=== PATIENT | female | born 1985 | race Caucasian/White ===

== ENCOUNTER → 2018-09-26 16:55 | Outpatient (CLI) | payer OTHER, SELFPAY ==
[2018-09-26 17:40] LABS: Add Manual Diff / Slide Review NO; Basophils Absolute Auto 100 /uL (0-100); Basophils Percent Auto 0.8 % (0-2); Eosinophils Absolute Auto 100 /uL (0-450); Eosinophils Percent Auto 0.7 % (2-4); Hematocrit 37.5 % (36-46); Lymphocytes Absolute Auto 2700 /uL (1100-4500); Lymphocytes Percent Auto 26.8 % (25-40); Mean Corpuscular HGB Conc 34.5 % (30-36); Mean Corpuscular Volume 89.8 fL (80-100); Monocytes Absolute Auto 600 /uL (0-900); Monocytes Percent Auto 6.4 % (3-14); Neutrophils Absolute Auto 6500 /uL (1500-7000); Neutrophils Percent Auto 65.3 % (50-75); Platelet Count 325 X10^3/uL (150-400); Red Blood Cell Count 4.18 X10^6/uL (4.0-5.2); Red Cell Distribution Width 12.1 % (11.6-14.8); White Blood Cell Count 9.9 X10^3/uL (4.5-11.0)
[2018-09-26 18:02] LABS: Appearance Urine UA CLEAR; Bilirubin Urine UA NEGATIVE (NEGATIVE); Color Urine UA YELLOW; Glucose Urine UA NEGATIVE (Negative); Ketones Urine UA NEGATIVE (NEGATIVE); Leukocyte Esterase Urine UA NEGATIVE (NEGATIVE); Nitrite Urine UA NEGATIVE (Negative); Occult Blood Urine UA NEGATIVE (Negative); Protein Urine UA NEGATIVE (Negative); Specific Gravity Urine UA 1.025 (1.000-1.035); Urobilinogen Urine UA 0.2 E.U./dL (0.2)
[2018-09-26 18:39] LABS: Hepatitis B Surface Antigen NEGATIVE s/c (NEGATIVE); Rubella Antibody IgG 58.4 IU/mL (>15)
[2018-09-26 19:15] LABS: HIV 1 & 2 Ab/Ag 4th Gen Combo NEGATIVE (NEGATIVE); Hep C Virus Ab w/Reflex Quant NEGATIVE s/c (NEGATIVE)
[2018-09-28 16:06] LABS: RPR Screen Nonreactive (Nonreactive)
== END ==
PROVIDERS: PCP Obstetrics & Gynecology; Visit Provider Obstetrics & Gynecology
DX: Z34.81 Encounter for supervision of other normal pregnancy, first trimester (principal)
CPT/HCPCS: 36415; 80055; 81003; 86787; 86803; 86850; 86870; 86886; 86900; 86901; 87086; 87389

== ENCOUNTER → 2018-10-23 08:44 | Outpatient (CLI) | payer OTHER, SELFPAY ==
[2018-10-23 20:30] LABS: Urine N gonorrhoeae NOT DETECTED
[2018-10-23 20:32] LABS: Urine Chlamydia NOT DETECTED
== END ==
PROVIDERS: PCP Obstetrics & Gynecology; Visit Provider Obstetrics & Gynecology
DX: Z11.3 Encounter for screening for infections with a predominantly sexual mode of transmission (principal)
CPT/HCPCS: 87491; 87591

== ENCOUNTER → 2018-11-20 16:48 | Outpatient (CLI) | payer OTHER, SELFPAY ==
[2018-11-26 15:57] LABS: AFP, Serum 44.1 ng/mL; Cigarette Smoker NO; Donated Egg NOT GIVEN; Donor Egg Age NOT GIVEN; Estriol, Free 1.42 ng/mL; Inhibin A, Dimeric 156 pg/mL; Maternal Weight 164 lbs; Number of Fetuses 1; Previous Pregnancy Down Syndro NOT GIVEN; hCG, MoM 2.45; hCG, Serum 65.9 IU/mL
== END ==
PROVIDERS: PCP Obstetrics & Gynecology; Visit Provider Obstetrics & Gynecology
DX: Z34.82 Encounter for supervision of other normal pregnancy, second trimester (principal); Z3A.17 17 weeks gestation of pregnancy
CPT/HCPCS: 36415; 82105; 82677; 84702; 86336

== ENCOUNTER 2018-11-26 15:05 | Outpatient (CLI) | payer OTHER, SELFPAY | END 2018-11-26 16:13 | disposition home or self-care (01) | LOC: LABOR 15:08 → OB 11-27 09:09 | PROVIDERS: PCP Obstetrics & Gynecology; Visit Provider Obstetrics & Gynecology | DX: O26.892 Other specified pregnancy related conditions, second trimester (principal); Z3A.17 17 weeks gestation of pregnancy; N89.8 Other specified noninflammatory disorders of vagina | CPT/HCPCS: 84112; G0378; G0379 ==

== ENCOUNTER → 2018-12-11 08:32 | Outpatient (CLI) | payer OTHER, SELFPAY ==
--- NOTE | 2018-12-11 08:33 | DI.US.S_ITS ---
PROCEDURE: US OB >= 14 WEEKS FETUS INDICATIONS: ANATOMY SCAN OUTSIDE/PRIOR DATING DATA: Last menstrual period (LMP): 07/23/18. LMP-based estimated date of delivery (ASHUTOSH): 04/29/19. First dating scan (date and location): 09/26/18. Estimated date of delivery (ASHUTOSH) from first dating scan: 05/02/19. TECHNIQUE: Real-time scanning was performed of the fetus, with image documentation and biometric measurements. Endovaginal scanning: No COMPARISON: [facility], , OB >= 14 WEEKS FETUS, 10/23/2018, 16:14. FINDINGS: General: A single living intrauterine gestation is present. Presentation: Vertex. Placenta: Placental position is anterior, without previa. Amniotic fluid index: 13.5 cm, normal range is 5-24 cm. heart rate: 149 beats per minute. Maternal cervical canal: 4.6 cm long. Normal lower limit is 2.5 cm. biometrics: Biparietal diameter: 19 weeks 5 days Head circumference: 19 weeks 6 days Abdominal circumference: 21 weeks 2 days Femur length: 19 weeks 5 days Estimated gestational age from initial scan: 19 weeks 5 days Composite gestational age from present scan: 20 weeks 0 days Estimated weight and percentile: 356 g; 86 percentile Measurement variability for biometric dating: +/- 7 days from 14 weeks to 15 weeks 6 days gestation, +/- 10 days from 16 weeks to 21 weeks 6 days gestation, +/- 2 weeks from 22 weeks to 27 weeks 6 days gestation, +/- 3 weeks for 28 weeks gestation or later. weight reference: 4500 g or EFW >90/95% is considered macrosomia or large for gestational age. EFW <10% is small for gestational age. EFW 5% or less is considered intra-uterine growth restriction. Anatomic survey: Neuro: Ventricles are non-dilated at less than 10 mm. Cisterna magna is normal at 3-11 mm. Cerebellum is normal in size and morphology. Nuchal skin fold: Normal at less than 6 mm between 14-21 weeks gestational age. Face: Nose and lips, facial profile are normal. Spine: No evidence for spina bifida. Heart: 4-chambered heart is present, with normal ventricular outflow tracts. Diaphragm: Diaphragm is intact. Stomach: Left-sided stomach is present. Kidneys: No hydronephrosis. Normal is less than 5 mm in 2nd trimester, less than 7 mm in 3rd trimester. Cord: 3-vessel cord has orthotopic insertion. Bladder: Normal in size. Extremities: All 4 extremities identified. IMPRESSION: 1. Single living IUP redemonstrated and interval growth is upper limits of normal. 2. Normal anatomic survey. Dictated by: John RAMOS Interpreted: Maddison Lowery MD on 12/11/2018 at 12:21 Approved by: Maddison Lowery M.D. on 12/11/2018 at 14:02
== END ==
PROVIDERS: Visit Provider Obstetrics & Gynecology
DX: Z34.82 Encounter for supervision of other normal pregnancy, second trimester (principal); Z3A.20 20 weeks gestation of pregnancy
CPT/HCPCS: 76811

== ENCOUNTER → 2019-01-13 17:12 | Outpatient (CLI) | payer OTHER, SELFPAY | PROVIDERS: PCP Family Medicine; Visit Provider Obstetrics & Gynecology | DX: Z57.9 Occupational exposure to unspecified risk factor (principal) | CPT/HCPCS: 86777; 86778 ==

== ENCOUNTER → 2019-01-26 09:29 | Outpatient (CLI) | payer OTHER, SELFPAY ==
[2019-01-26 11:00] LABS: Hematocrit 34.2 % (36-46); Hemoglobin 11.8 g/dL (12.0-16.0)
[2019-01-26 11:28] LABS: GTT (PREG) 1 Hour PP 50gm Dose 143 mg/dL (76-139)
== END ==
PROVIDERS: PCP Family Medicine; Visit Provider Obstetrics & Gynecology
DX: Z34.82 Encounter for supervision of other normal pregnancy, second trimester (principal); Z3A.24 24 weeks gestation of pregnancy
CPT/HCPCS: 36415; 82950; 85014; 85018

== ENCOUNTER → 2019-02-02 07:15 | Outpatient (CLI) | payer OTHER, SELFPAY ==
[2019-02-02 08:40] LABS: Glucose Fasting Gestational 104 mg/dL (76-95)
[2019-02-02 10:14] LABS: Glucose 1 Hour Gest 167 mg/dL (76-180)
[2019-02-02 10:21] LABS: Glucose 2 Hour Gest 160 mg/dL (76-155)
[2019-02-02 10:57] LABS: Glucose Tol Interp,Gestational INTERPRETATION
[2019-02-02 12:49] LABS: Glucose 3 Hour Gest 131 mg/dL (76-140)
== END ==
PROVIDERS: PCP Obstetrics & Gynecology; Visit Provider Obstetrics & Gynecology
DX: O99.810 Abnormal glucose complicating pregnancy (principal); Z34.92 Encounter for supervision of normal pregnancy, unspecified, second trimester
CPT/HCPCS: 36415; 82951; 82952

== ENCOUNTER → 2019-02-24 09:38 | Outpatient (CLI) | payer OTHER, SELFPAY | PROVIDERS: Visit Provider Obstetrics & Gynecology | DX: Z34.92 Encounter for supervision of normal pregnancy, unspecified, second trimester (principal); Z3A.26 26 weeks gestation of pregnancy | CPT/HCPCS: 36415; 86850; 86870; 86886 ==

== ENCOUNTER → 2019-03-27 14:51 | Outpatient (CLI) | payer OTHER, SELFPAY ==
[2019-03-28 13:28] LABS: Strep Grp B PCR NEG for Grp B Strep
== END ==
PROVIDERS: Visit Provider Specialist
DX: Z34.83 Encounter for supervision of other normal pregnancy, third trimester (principal)
CPT/HCPCS: 87653

== ENCOUNTER 2019-04-20 09:43 | Outpatient (CLI) | payer OTHER, SELFPAY | END 2019-04-20 10:17 | disposition home or self-care (01) | LOC: OB 16:51 | PROVIDERS: Referring Provider Specialist; Visit Provider Specialist | DX: Z34.83 Encounter for supervision of other normal pregnancy, third trimester (principal); Z3A.38 38 weeks gestation of pregnancy | CPT/HCPCS: 59025; G0378; G0379 ==

== ENCOUNTER 2019-04-24 09:08 | Inpatient (IN) | payer OTHER, SELFPAY ==
--- NOTE | 2019-04-20 10:20 | P.TNLD_ITS ---
Visit Information Visit Information Date of evaluation: 04/20/19 Primary OB Provider: Tram Jimenez Reason for Evaluation: Yes non-stress test non-stress test reason: decreased movement Vital Signs Vital Signs: Blood pressure 109/72, pulse of 95, temperature 35.8? [facility] Surgical History (Updated 02/23/19 @ 20:26 by Radha Baptiste MD) Status post delivery (07/25/16) Family History (Updated 01/23/16 @ 00:00 by Conversion Provider) Grandfather Multiple myeloma Cancer Heart disease Hypertension High cholesterol Grandmother Cancer Stroke Alzheimer's disease Grandfather Heart disease Hypertension Stroke Grandmother Intestinal type adenocarcinoma Cancer Stroke Social History Smoking Status: Never smoker Evaluation Evaluation Baseline heart rate: 130 Variability: Moderate (11-25) monitor accelerations: Present monitor decelerations: Absent Contraction Frequency (minutes): 8 Uterine Contraction Intensity: Mild Category of Tracing: I Diagnosis, Plan/Disposition Final Diagnosis (1) Decreased movement: Current Visit: No Status: Acute Plan/Disposition Plan: Reactive nonstress test. Patient not feeling contractions. She is reassured the baby looks well. Patient is scheduled for 4 days OB Disposition: home
--- NOTE | 2019-04-24 | PATH_ITS ---
[facility] Accession Number: [id number] . 01 Material submitted: . fallopian tube - BILATERAL FALLOPIAN TUBE SEGMENTS . 02 Diagnosis: Bilateral Fallopian Tubes, Segments, Sterilization: Two circumferential segments of fallopian tube. No evidence of neoplasm. [facility] 04/27/2019 1405 Local . 02 Electronically signed: . Danielle Dyson MD, Pathologist NPI- [id number] . 01 Gross description: . Received in formalin, labeled with the patient's name and bilateral fallopian tube segments, are two nonfimbriated segments of fallopian tube, 1.6 cm length x 0.6 cm diameter and 2.5 cm length x 0.6 cm diameter, both with purple-lockwood, smooth serosa and lumen up to 0.4 cm. Cardiopulmonary Physical Therapist sections are submitted. Summary of sections: A1. Smaller segment, three pieces; A2. Larger segment, three pieces. ([id number]) /[facility] 04/25/2019 1208 Local . 02 Pathologist provided ICD-10: Z30.2 . 02 CPT . 017771 Performed at: 01 [facility] [address], [place], [place] [id number] MD Pedro Quiroz MD Phone: [phone] Performed at: 02 [facility] [address] [place], [place] [id number] MD Danielle Dyson MD Phone: [phone]
[2019-04-24] MEDS: LACTATED RINGERS 1,000 ML 100 ML IV ×2 (10:12→10:58)
[2019-04-24 10:16] LABS: Add Manual Diff / Slide Review NO; Basophils Absolute Auto 0 /uL (0-100); Basophils Percent Auto 0.6 % (0-2); Eosinophils Absolute Auto 0 /uL (0-450); Eosinophils Percent Auto 0.6 % (2-4); Hematocrit 31.8 % (36-46); Lymphocytes Absolute Auto 1400 /uL (1100-4500); Lymphocytes Percent Auto 18.2 % (25-40); Mean Corpuscular HGB Conc 34.6 % (30-36); Mean Corpuscular Hemoglobin 30.5 PG (26-34); Mean Corpuscular Volume 88.3 fL (80-100); Monocytes Absolute Auto 500 /uL (0-900); Monocytes Percent Auto 6.5 % (3-14); Neutrophils Absolute Auto 5600 /uL (1500-7000); Neutrophils Percent Auto 74.1 % (50-75); Platelet Count 247 X10^3/uL (150-400); Red Cell Distribution Width 12.9 % (11.6-14.8); White Blood Cell Count 7.6 X10^3/uL (4.5-11.0)
--- NOTE | 2019-04-24 11:04 | PM.PREOP ---
Pre-operative Note Interval Note History & Physical reviewed/Exam performed by Physician: Yes Changes to H&P: No
--- NOTE | 2019-04-24 11:05 | PM.OBHP.1 ---
OB HPI Date/Time Date of admission: 04/24/19 Date Patient Seen: 04/24/19 Time Patient Seen: 11:06 History of Present Condition Chief complaint: [id number] : 2 Para: 1 Estimated Date of Delivery: 04/30/19 Estimated Gestational Age (weeks): 39 Narrative: Amaya Brock is a 34 year old female here for repeat low-transverse section bilateral tubal ligation Indications Operative indications ( section): previous uterine surgery History of Present care: good care, initiated at week # (9), number of visits (11) and pounds weight gain (35) Dating criteria: LMP confirmed by 1st trimester US Ultrasounds: normal mid trimester US Obstetrical complications: none Medical complications: none Preadmission Labs Blood type: A (-) negative -: Antibody screen: positive, GBS status: negative, HBsAG: negative, HIV: negative and RPR/VDLR: negative -: Chlamydia screen: not detected and Gonorrhea screen: not detected -: Rubella: immune and Varicella: immune HCAB: negative Quad screen: Normal 1 hr GTT: 143 3 hr GTT: 1 hr (167), 2 hr (160) and 3 hr (131) Fasting blood glucose: 104 Prior (ies) History: 07/25/2016 39 week 8 lb 15 oz male stage II arrest Evaluation Evaluation Baseline heart rate: 140 Variability: Moderate (11-25) monitor accelerations: Present monitor decelerations: Absent Contraction Frequency (minutes): 10 Uterine Contraction Intensity: Mild Category of Tracing: I Laboratory results: Laboratory Tests 04/24/19 09:50 WBC 7.6 RBC 3.60 L Hgb 11.0 L Hct 31.8 L MCV 88.3 MCH 30.5 MCHC 34.6 RDW 12.9 Plt Count 247 Neut % (Auto) 74.1 Lymph % (Auto) 18.2 L [place] % (Auto) 6.5 Eos % (Auto) 0.6 L Baso % (Auto) 0.6 Neut # (Auto) 5600 Lymph # (Auto) 1400 [place] # (Auto) 500 Eos # (Auto) 0 Baso # (Auto) 0 PFSH Surgical History (Updated 02/23/19 @ 20:26 by Radha Baptiste MD) Status post delivery (07/25/16) Family History (Updated 01/23/16 @ 00:00 by Conversion Provider) Grandfather Multiple myeloma Cancer Heart disease Hypertension High cholesterol Grandmother Cancer Stroke Alzheimer's disease Grandfather Heart disease Hypertension Stroke Grandmother Intestinal type adenocarcinoma Cancer Stroke Social History Smoking Status: Never smoker Meds Home Medications and Allergies Home Medications Medication Instructions Recorded Confirmed Type Breast Pump - Double Electric ea #1 04/24/16 Rx Allergies Allergy/AdvReac Type Severity Reaction Status Date / Time Penicillins [PENICILLINS] Allergy Severe Rash Verified 09/26/18 15:57 Sulfa (Sulfonamide Allergy Severe rash Verified 04/24/19 10:37 Antibiotics) [SULFA (SULFONAMIDE ANTIBIOTICS)] Lamasil Allergy Severe rash Uncoded 04/24/19 10:37 Review of Systems Review of Systems Narrative: Patient denies headaches, scotomata, epigastric pain. Good movement. No leakage of fluid. ROS: Yes All systems reviewed with the patient and are negative except as otherwise documented Exam Vital Signs (past 8 hours): Blood pressure 117/67, pulse of 85, temperature 97.5? Narrative Exam Narrative: HEENT exam within normal limits. Lungs are clear to auscultation percussion. Heart is regular rate and rhythm no S3-S4 or murmurs. Abdomen is soft, nontender, gravid. Fetus is vertex. Pfannenstiel scar. Extremities with trace edema and nontender Objective Labs Result Diagrams: 04/24/19 09:50 Labs: Laboratory Results - last 24 hr 04/24/19 09:50 WBC 7.6 RBC 3.60 L Hgb 11.0 L Hct 31.8 L MCV 88.3 MCH 30.5 MCHC 34.6 RDW 12.9 Plt Count 247 Neut % (Auto) 74.1 Lymph % (Auto) 18.2 L [place] % (Auto) 6.5 Eos % (Auto) 0.6 L Baso % (Auto) 0.6 Neut # (Auto) 5600 Lymph # (Auto) 1400 [place] # (Auto) 500 Eos # (Auto) 0 Baso # (Auto) 0 Assessment and Plan Assessment and Plan Assessment and Plan narrative: Patient with prior section at 39 weeks requesting repeat section and tubal ligation for undesired fertility.
[2019-04-24] MEDS: CEFAZOLIN 2 GM/100 ML FROZ.PIGGY IV (11:35)
[2019-04-24 11:36] VITALS: BP 117/67
--- NOTE | 2019-04-24 12:26 | SUR.OPER ---
Supine on Padded OR bed, head on pillow, safety belt at thigh, arms secured on padded arm boards at <90 degrees abduction. Bump under right buttock. Legs uncrossed with pillow under knees, gel pad to heels, tape over blanket to lower legs.
--- NOTE | 2019-04-24 12:51 | SUR.OPER ---
Viable baby girl delivered by at 1209. Cord gases and placenta sent with VANCE Whaley.
[2019-04-24 13:00] VITALS: BP 103/64; PULSE 69; RESP 20; TEMP 36.1; O2SAT 100
[2019-04-24 13:05] VITALS: BP 108/65; PULSE 73; RESP 17; O2SAT 99
--- NOTE | 2019-04-24 13:05 | PM.OP.1 ---
Operative Date/Time/Diagnoses Date of procedure: 04/24/19 Time of procedure: 13:05 Pre-op diagnosis: 39 week gestation with prior section and undesired fertility Post-op diagnosis: same Procedure & Clinicians Procedure: Repeat low-transverse section with bilateral tubal ligation Same procedure as scheduled: Yes Indications: 39 week gestation with prior section and undesired fertility requesting repeat section and tubal ligation Surgeon: Tram Jimenez Political Aide: Pippa Corbett Click Yes if Unassisted: No Anesthesia Type: Spinal Operative Notes Findings: Normal tubes, ovaries, and uterus. Viable female infant with Apgars of 9 and 9 weighing 8 lb 8 oz Closure Type: primary Specimen(s): other (Bilateral tubal segments) Applied: catheter (Galvin) Estimated Blood Loss (mL): 300 Blood products transfused: none Procedure in detail: The patient was brought to the operating room where she underwent a spinal for anesthesia. She was placed in a supine position with a left lateral tilt. A Galvin catheter was placed. Pulsatile stockings were placed and functional throughout the case. 2 g of Ancef were given IV prior to the incision. Warming was in place. The patient was prepped and draped in usual sterile fashion. A low transverse incision was made with a scalpel and the incision was carried down to the fascial layer which was incised transversely with scissors. The midline attachments are superiorly and inferiorly. Some bleeding was controlled Bovie. The rectus muscles were in the midline and the peritoneal incision was made with no damage to internal structures. The peritoneum was incised and superiorly and inferiorly. Bladder blade was placed and a bladder flap was developed and the bladder held away from the lower uterine segment. An incision was made in the uterus with the scalpel and the incision was extended with stretching. The head was elevated out of the abdomen and with fundal pressure the baby was delivered. The was bulb suctioned for clear fluid and handed off to the warmer. Cord blood was collected. The placenta delivered spontaneously with traction. The uterus was cleaned with clean laps. The uterine incision was closed in 2 layers of 0 chromic suture the first a running locking layer the second an imbricating layer. The bladder peritoneum was repaired with 2-0 Polysorb suture. The gutters were cleaned of any remaining fluids and ovaries and tubes were observed to be normal. The right fallopian tube was grasped with the Marielos and a segment tied off x2 with 2 0 plain suture and the intervening section removed with scissors. The segment ends were cauterized. The same procedure was performed on the left side. Adequate hemostasis was noted. The perineum was closed with 2-0 Polysorb suture. The fascia layer was closed with 0 Polysorb suture with 2 stitches. The incision was irrigated and adequate hemostasis noted. The incision was closed with interrupted 3-0 Polysorb sutures and then a subcuticular stitch of 4-0 Polysorb suture. Steri-Strips were placed. The uterus was massaged to remove any clots. The patient went to recovery room in good condition. Counts of instruments and sponges were correct. Complications: none Post-operative Condition: stable Disposition: other ( Center) Plan for aftercare: Routine post section
[2019-04-24 13:10] VITALS: BP 97/61; PULSE 76; RESP 11; O2SAT 100
[2019-04-24 13:16] VITALS: BP 104/54; PULSE 71; RESP 18; O2SAT 100
[2019-04-24 13:20] VITALS: BP 101/60; PULSE 76; RESP 18; O2SAT 98
[2019-04-24] MEDS: METOCLOPRAMIDE 10 MG/2 ML INJ IV (14:13)
[2019-04-24] MEDS: KETOROLAC 30 MG/ML VIAL IV (18:11)
[2019-04-24] MEDS: ONDANSETRON 4 MG/2 ML INJ IV (18:11)
[2019-04-25] MEDS: KETOROLAC 30 MG/ML VIAL IV ×2 (00:17→06:02)
[2019-04-25 07:54] LABS: Add Manual Diff / Slide Review NO; Basophils Absolute Auto 100 /uL (0-100); Basophils Percent Auto 1.1 % (0-2); Eosinophils Absolute Auto 100 /uL (0-450); Eosinophils Percent Auto 0.7 % (2-4); Hematocrit 32.2 % (36-46); Hemoglobin 11.1 g/dL (12.0-16.0); Lymphocytes Absolute Auto 1300 /uL (1100-4500); Lymphocytes Percent Auto 14.6 % (25-40); Mean Corpuscular HGB Conc 34.5 % (30-36); Mean Corpuscular Hemoglobin 30.4 PG (26-34); Monocytes Absolute Auto 600 /uL (0-900); Monocytes Percent Auto 6.6 % (3-14); Neutrophils Absolute Auto 7000 /uL (1500-7000); Platelet Count 229 X10^3/uL (150-400); Red Blood Cell Count 3.65 X10^6/uL (4.0-5.2); Red Cell Distribution Width 12.9 % (11.6-14.8)
[2019-04-25] MEDS: FERROUS GLUCONATE 324 MG TABLET PO (09:41)
[2019-04-25] MEDS: DOCUSATE 250 MG CAPSULE PO (09:41)
--- NOTE | 2019-04-25 11:35 | P.PNOB_ITS ---
Subjective - OB Subjective Patient comments: no complaints [place] baby status: nursing well feeding status: exclusively breast feeding Date Patient Seen: 04/25/19 Time Patient Seen: 11:35 Interval history: Postoperative day # 1 repeat section with tubal ligation. Patient now is feeling well. She did have significant nausea and sweating postop. She has tolerated breakfast and is urinating and ambulating well. Her pain is under control with Toradol. No headaches, scotomata, epigastric pain. She is breast-feeding without difficulty. Exam Vital Signs (past 8 hours): Blood pressure 114/66, pulse of 85, temperature 98.2? Oxygen Delivery Method Room Air Narrative Exam Narrative: Abdomen is soft, nontender. Uterus is firm, U -1, nontender. Patient's dressing was removed due to saturation with blood but the incision is clean, dry, intact. Steri-Strips and a dressing was replaced. Extremities without edema and nontender. Objective Labs Result Diagrams: 04/25/19 07:45 Labs: Laboratory Results - last 24 hr 04/25/19 07:45 WBC 9.0 RBC 3.65 L Hgb 11.1 L Hct 32.2 L MCV 88.0 MCH 30.4 MCHC 34.5 RDW 12.9 Plt Count 229 Neut % (Auto) 77.0 H Lymph % (Auto) 14.6 L [place] % (Auto) 6.6 Eos % (Auto) 0.7 L Baso % (Auto) 1.1 Neut # (Auto) 7000 Lymph # (Auto) 1300 [place] # (Auto) 600 Eos # (Auto) 100 Baso # (Auto) 100 Assessment & Plan Assessment and Plan (1) Delivery by section: Status: Acute Current Visit: Yes (2) Sterilization: Status: Acute Current Visit: Yes Plan day: 1 plan OB: routine postop care Comments: Patient is doing well . Likely home in a.m. if doing well. Routine post section care. Time Spent With Patient Time: Total time spent is greater than 50% in coordination of care (as documented) at patient's floor/unit and/or counseling patient: Time with patient: 15-24 minutes
[2019-04-25] MEDS: OXYCODONE/ACETAMINOPHEN 5/325 TABLET 1 TAB PO ×2 (13:10→17:16)
[2019-04-25] MEDS: IBUPROFEN 600 MG TABLET PO ×2 (13:11→19:03)
[2019-04-25] MEDS: OXYCODONE/ACETAMINOPHEN 5/325 TABLET 2 TAB PO (20:59)
[2019-04-26] MEDS: IBUPROFEN 600 MG TABLET PO ×2 (00:58→06:50)
[2019-04-26] MEDS: OXYCODONE/ACETAMINOPHEN 5/325 TABLET 2 TAB PO ×3 (00:58→09:28)
[2019-04-26] MEDS: DOCUSATE 250 MG CAPSULE PO (09:28)
[2019-04-26] MEDS: FERROUS GLUCONATE 324 MG TABLET PO (09:29)
--- NOTE | 2019-04-26 09:37 | PM.OBDS.1 ---
Discharge Providers Provider Date of admission: 04/24/19 09:08 Discharge Date: 04/26/19 Primary care physician: Kaylin Wallace MD Consults: 04/24/19 13:52 Consult to Slot Floor Supervisor Routine Comment: Discharge provider: Tram Jimenez MD Summary Hospital Course Date Patient Seen: 04/26/19 Time Patient Seen: 09:38 Procedures: Repeat low-transverse section with bilateral tubal ligation Hospital Course: Patient underwent a repeat low-transverse section with bilateral tubal ligation. She had some problems with nausea postoperatively but is doing well now. She is urinating and ambulating well. She is passing gas. Pain is tolerable with Percocet and Motrin. She is breast-feeding without difficulty. No headaches, scotomata, epigastric pain. Peripartum Data Infant Delivery Method: Section (Repeat) Procedures: Repeat low-transverse section with bilateral tubal ligation complications: none Discharge Diagnosis (1) Delivery by section: Status: Acute (2) Sterilization: Status: Acute Status at Discharge Cognitive/behavioral status at discharge: oriented Functional status at discharge: independent ambulation Overall status at discharge: patient is progressing back to baseline Time Spent with Patient Time attestation: Total time spent providing and/or coordinating discharge services: Time spent: Less than 30 minutes Objective Labs Result Diagrams: 04/25/19 07:45 Exam Vital Signs (past 8 hours): Blood pressure 109/68, pulse of 83, temperature 98.6? Oxygen Delivery Method Room Air Narrative Exam Narrative: Abdomen is soft, nontender. Uterus is firm, at U, appropriately tender. Incision is clean, dry, intact. Mild lochia. Extremities without edema and nontender. Patient is Rh negative baby also Rh negative so no RhoGAM is needed. Patient received the Tdap in the 3rd trimester. Patient is rubella immune. Discharge Plan Discharge Plan Patient Disposition: Home Discharge orders & Medications Prescriptions: New oxycodone-acetaminophen 5-325 mg Tablet 2 tab PO Q4HR PRN (Reason: Pain, Severe (7-10)) Qty: 30 RF: 0 ibuprofen 600 mg Tablet 600 mg PO Q6HR PRN (Reason: Fever/Mild Pain (1-3)) Qty: 30 RF: 0 docusate sodium 250 mg Capsule 250 mg PO DAILY Qty: 30 RF: 0 Continued Breast Pump - Double Electric bottle 1 ea PO DAILY RF: 0 Follow up/Referrals: Tram Jimenez MD [Physician] - (please follow up w/ Dr. Jimenez on April 30 @ 10:45am, with a 10:25am check in time) Kaylin Wallace MD [Primary Care Provider] - Diet/Activity/Treatments Diet: Regular Activity: Nothing in vagina, do not lift over 20 lb for 6 weeks Skin/Wound/Dressing Care Report to your healthcare provider any signs of infection, such as:: chills, fever, increased pain and unusual redness Dressing: Leave Steri-Strips in place. They do not need to be covered. May get wet just pat dry. Visit Report/Discharge Packet Instructions: DI for Stand Alone Forms: Discharge: Care Discharge Data Primary Care Provider: Kaylin Wallace
== END 2019-04-26 10:12 | disposition home or self-care (01) | DRG 785 ==
PROVIDERS: Admitting Provider Specialist; PCP Family Medicine; Referring Provider Specialist; Visit Provider Specialist
PROC: 10D00Z1 Extraction of Products of Conception, Low, Open Approach (ICD-10-PCS; CPT 59514; principal; 2019-04-24 11:15)
DX: O34.211 Maternal care for low transverse scar from previous cesarean delivery (principal); Z3A.39 39 weeks gestation of pregnancy; Z37.0 Single live birth; Z30.2 Encounter for sterilization; R11.0 Nausea; R61 Generalized hyperhidrosis
CPT/HCPCS: 36415; 58611; 59050; 59510; 59514; 85025; 86850; 86870; 86900; 86901; J0690; J1885; J2274; J2405; J2590; J2765; J3010